=== PATIENT | male | born 1985 | race Caucasian/White ===

== ENCOUNTER 2018-06-29 15:41 | Emergency (ER) | payer MEDICAID, OTHER ==
[2018-06-29 16:33] VITALS: BP 131/81
--- NOTE | 2018-06-30 08:25 | UC ---
- Progress Note Progress Note: No imaging June 29, 2018. Therefore there are no discrepancies. Discharge - Sign-Out/Discharge Documenting (check all that apply): Patient Departure All imaging exams completed and their final reports reviewed: No Studies - Discharge Plan Condition: Stable Disposition: LEFT WITHOUT BEING SEEN Referrals: No Primary Care Phys,NOPCP [Primary Care Provider] - - Billing Disposition and Condition Condition: STABLE Disposition: Left Without Being Seen
== END 2018-06-29 16:44 | disposition left against medical advice (07) ==
LOC: UCEAST 15:41
DX: R21 Rash and other nonspecific skin eruption (principal); Z53.21 Procedure and treatment not carried out due to patient leaving prior to being seen by health care provider

== ENCOUNTER 2019-06-03 12:37 | Emergency (ER) | payer OTHER ==
[2019-06-03 15:25] VITALS: BP 123/81
--- NOTE | 2019-06-03 15:55 | ED ---
Lower Extremity - HPI Summary HPI Summary: Patient is a 33-year-old male who presents emergency department for a right ankle injury that occurred today. Patient states he was walking when he stepped in a hole and twisted his right ankle. Symptoms are mild in severity. Walking makes symptoms worse. Rest makes symptoms better. - History of Current Complaint Chief Complaint: EDExtremityLower Stated Complaint: RT ANKLE INJ PER PT Time Seen by Provider: 06/03/19 12:55 Hx Obtained From: Patient Pain Intensity: 4 Pain Scale Used: 0-10 Numeric - Allergies/Home Medications Allergies/Adverse Reactions: Allergies Allergy/AdvReac Type Severity Reaction Status Date / Time Sulfa (Sulfonamide Allergy Difficulty Verified 06/03/19 12:42 Antibiotics) Breathing PMH/Surg Hx/FS Hx/Imm Hx Previously Healthy: Yes Endocrine/Hematology History: Denies: Hx Diabetes, Hx Thyroid Disease Cardiovascular History: Denies: Hx Hypertension Respiratory History: Denies: Hx Asthma, Hx Chronic Obstructive Pulmonary Disease (COPD) GI History: Denies: Hx Ulcer - Surgical History Surgery Procedure, Year, and Place: [facility] Infectious Disease History: No Infectious Disease History: Denies: Hx Hepatitis, Hx Human Immunodeficiency Virus (HIV), Traveled Outside the [place] in Last 30 Days - Family History Known Family History: Positive: Non-Contributory - Social History Occupation: Employed Full-time Lives: With Family Alcohol Use: Occasionally Substance Use Type: Reports: None Smoking Status (MU): Current Some Day Smoker Type: Cigars Review of Systems Positive: Other - right ankle pain Skin: Negative Neurological: Negative Negative: Weakness, Paresthesia, Numbness All Other Systems Reviewed And Are Negative: Yes Physical Exam Triage Information Reviewed: Yes Vital Signs On Initial Exam: Initial Vitals Temp Pulse Resp BP Pulse Ox 98.3 F 71 18 129/84 98 06/03/19 12:38 06/03/19 12:38 06/03/19 12:38 06/03/19 12:38 06/03/19 12:38 Vital Signs Reviewed: Yes Appearance: Positive: Well-Appearing - Patient sitting in chair no acute distress. present. Skin: Positive: Warm, Dry Head/Face: Positive: Normal Head/Face Inspection Eyes: Positive: Normal, EOMI Neck: Positive: Supple Musculoskeletal: Positive: Other - Moderate soft tissue edema over right lateral malleolus. Good pedal pulse. No palpable foot pain or pain over the base of the fifth metatarsal. No proximal tib-fib or knee pain. No breaks in the skin. Neurological: Positive: Normal, CN Intact II-III Psychiatric: Positive: Affect/Mood Appropriate Procedures - Splinting Right Lower Extremity Hand-Made Type: orthoglass Splint: posterior walking Pre-Proc Neuro Vasc Exam: normal Post-Proc Neuro Vasc Exam: normal Splint Applied by Provider: [facility] - Vital Signs Vital Signs Temp Pulse Resp BP Pulse Ox 06/03/19 15:24 97.4 F 71 16 123/81 98 06/03/19 12:38 98.3 F 71 18 129/84 98 - Laboratory Lab Statement: Any lab studies that have been ordered have been reviewed, and results considered in the medical decision making process. Lower Extremity Course/Dx - Course Course Of Treatment: Patient with isolated right ankle injury. He declines pain medication. Xray per radiology: IMPRESSION: 1. FRACTURE OF THE DISTAL FIBULA AT THE LATERAL MALLEOLUS. 2. ILL-DEFINED SCLEROTIC LESION OF THE DISTAL TIBIA. IN THE ABSENCE OF PREVIOUS. EXAMINATIONS TO DOCUMENT STABILITY, RECOMMEND FURTHER EVALUATION WITH MR OF THE ANKLE IN. THE NONACUTE SETTING, OR TENSION A FOLLOW-UP IMAGING. Ankle was splinted and crutched. Discussed bone lesion with patient and he believes he has been informed of this before. Patient to call orthopedic clinic on Wednesday for close follow-up appointment. Keep splint in place. Ice and elevate. Tylenol or Motrin for pain as directed. Patient understands and agrees with plan. - Diagnoses Differential Diagnosis/HQI/PQRI: Positive: Fracture (Closed), Sprain, Strain Provider Diagnoses: Ankle fracture, Bone lesion Discharge ED - Sign-Out/Discharge Documenting (check all that apply): Patient Departure Patient Received Moderate/Deep Sedation with Procedure: No - Discharge Plan Condition: Improved Disposition: HOME Patient Education Materials: Ankle Fracture (ED) Referrals: Roberto Hightower MD [Medical Doctor] - David Lizarraga MD [Primary Care Provider] - Additional Instructions: Call the orthopedic clinic Wednesday for morning for a close follow up appointment Keep splint dry and in place Use crutches Ice and elevate intermittently Tylenol or Motrin for pain as directed Return to ER if symptoms change or worsen - Billing Disposition and Condition Condition: IMPROVED Disposition: Home
== END 2019-06-03 15:20 | disposition home or self-care (01) ==
LOC: ED 12:37
DX: S82.891A Other fracture of right lower leg, initial encounter for closed fracture (principal); M89.9 Disorder of bone, unspecified; X50.0XXA Overexertion from strenuous movement or load, initial encounter; Y92.9 Unspecified place or not applicable
CPT/HCPCS: 99282